=== PATIENT | male | born 1965 | race African-American/Black ===

== ENCOUNTER 2021-05-22 20:25 | Emergency (ER) | payer SELFPAY ==
[~2021-05-22] VITALS: Ht 182.9 cm; Wt 127.0 kg
[2021-05-22] MEDS ORDERED: SODIUM CHLORIDE 0.9% 1,000 ML IV ONE (21:00)
[2021-05-22] MEDS ORDERED: LORAZEPAM 2MG/ML CPJ IV STA (21:00)
[2021-05-22 23:08] LABS: BASOPHILS % 0.6 % (0.0-2.0); EOSINOPHILS % 0.8 % (0.0-5.0); HEMATOCRIT. 45.4 % (42.0-52.0); HEMOGLOBIN. 15.5 g/dL (14.0-18.0); LYMPHOCYTES % 22.5 % (20.0-50.0); MEAN CORPUSCULAR VOLUME 87.9 fL (80.0-94.0); MEAN PLATELET VOLUME 7.8 fl (7.4-10.4); MONOCYTES % 10.3 % (2.0-8.0); NEUTROPHILS % 65.8 % (40.0-76.0); PLATELET 312 x1000/uL (130-400); RED BLOOD CELL COUNT 5.16 mill/uL (4.7-6.1); RED CELL DISTRIBUTION WIDTH 14.5 % (11.6-14.6)
[2021-05-22 23:18] LABS: CHLORIDE 102 mEq/L (98-107)
[2021-05-22 23:22] LABS: ETHANOL BLOOD < 10 mg/dL
[2021-05-22] MEDS ORDERED: HYDR-3782 MT (23:56)
[2021-05-23 05:24] VITALS: BP 149/82
== END 2021-05-23 05:45 | disposition home or self-care (01) ==
LOC: ER 20:25
DX: F15.10 Other stimulant abuse, uncomplicated (principal); I10 Essential (primary) hypertension; R73.03 Prediabetes; E66.9 Obesity, unspecified; F17.210 Nicotine dependence, cigarettes, uncomplicated; Z68.38 Body mass index [BMI] 38.0-38.9, adult; Z71.6 Tobacco abuse counseling
CPT/HCPCS: 36415; 71045; 80053; 80307; 80320; 80329; 82962; 85025; 93005; 96374; 99285; 99406; J2060; J7030; G0480